=== PATIENT | female | born 1980 | race Caucasian/White ===

== ENCOUNTER 2018-07-21 15:26 | Emergency (ER) | payer SELFPAY ==
[~2018-07-21] VITALS: Wt 74.9 kg
[~2018-07-21 15:26] MED LIST: ACET1TAB40 PO; IBUP-1542 PO
[2018-07-21] MEDS ORDERED: IBUP800T48 PO (17:03)
--- NOTE | 2018-07-21 17:14 | ERD ---
ER Documentation Chief Complaint Chief Complaint LEFT SIDED UNDER BREAST CRAMPING RADIATING TO ARM. NUMBNESS. BREAST IMPLANT HPI This is a 37-year-old female presents ED with left sided breast pain that is been off and on for the past 4 days. Patient states that when the breast pain starts that sharp and somewhat cramping in nature. Patient also admits to some left arm numbness. Denies chest pain, sputum production, cough, congestion, run ny nose, shortness breath, trouble breathing, redness, swelling, purulent drainage coming from breast, inverted nipple, among others. Patient denies cardiac risk factors including: hypertension, diabetes mellitus, hypercholesterolemia, physical inactivity, smoking, hx of CAD, and prior stress/cath. Patient denies PE risk factors including recent surgery/immobilization, smoking, prior hx of DVT, coagulopathy, hx of cancer, exogenous estrogen use, one sided lower extremity swelling, and lower extremity pain ROS All systems reviewed and are negative except as per history of present illness. Medications Home Meds Active Scripts Ibuprofen* (Motrin*) 800 Mg Tab, 800 MG PO Q6, #30 TAB Prov:ISAAK HOLLOWAY PA-C 07/21/18 Acetaminophen-Codeine* (Acetaminophen-Cod #3*) 300-30 Mg Tab, 1 TAB PO Q4H PRN for PAIN LEVEL 6-10, #15 TAB Prov:CHO,KAITLIN 09/27/14 Ibuprofen* (Motrin*) 600 Mg Tab, 600 MG PO Q6, #15 TAB Prov:CHO,KAITLIN 09/27/14 Allergies Allergies: Coded Allergies: No Known Allergy (Verified , 03/07/14) PMhx/Soc History of Surgery: Yes (BREAST IMPLANTS 9 YEARS AGO) Anesthesia Reaction: No Hx Neurological Disorder: No Hx Respiratory Disorders: No Hx Cardiac Disorders: No Hx Psychiatric Problems: No Hx Miscellaneous Medical Probl: No Hx Alcohol Use: No Hx Substance Use: No Hx Tobacco Use: No Smoking Status: Never smoker FmHx Family History: No diabetes Physical Exam Vitals Vital Signs Date Temp Pulse Resp B/P (MAP) Pulse Ox O2 O2 Flow FiO2 Time Delivery Rate 07/21/18 97.2 54 18 136/65 98 15:40 (88) Physical Exam Physical Exam Vitals signs: Reviewed by me. General: Well developed, well nourished, in no acute distress. Patient is awake and alert. Head: Normocephalic, atraumatic. Eyes: Normal conjunctiva, Pupils PERRLA, EOM intact grossly ENT: Pharynx is clear, Moist mucous membranes, external ears, nose and mouth normal Neck: Supple, no masses, lymphadenopathy or JVD Respiratory: Clear to auscultation bilaterally with no wheezing, rhonchi, rales, no distress Cardiovascular: RRR, no murmurs, rubs, or gallops Breast: Breast bilaterally are pendulous, there is no redness, swelling or evidence of mastitis, there is mild tenderness palpation along the left breast at the 7 o'clock position, there is no mass or fluctuant mass palpated, no nipple discharge Neurologic: Alert and oriented, moving all extremities, normal speech, no focal weakness, no cerebellar signs. Normal mentation Skin: warm and dry, No rash Psych: Normal mood Results 24 hrs Current Medications Medications Dose Sig/Fly Start Time Status Last (Trade) Ordered Route PRN Stop Time Admin Dose Reason Admin Ibuprofen 800 mg ONCE ONCE 07/21/18 (Motrin) PO 17:30 07/21/18 17:31 Procedures/MDM EKG, MONITORS, & DIAGNOSTIC IMAGING: EKG read by iman: Rate/Rhythm: Sinus bradycardia at a rate of 53 Intervals: Normal Impression: No evidence of ischemia or arrhythmia No ST elevation, no peak T waves, no widened QRS, no parenteral prolongation, no QT interval prolongation ER COURSE: The patient was given ibuprofen The medication was well tolerated and the patient reports improvement in symptoms. The patient was stable throughout ED course. I kept the patient and/or family informed of laboratory and diagnostic imaging results throughout the emergency room course. The patient was promptly evaluated and a treatment plan was devised based on H&P and other data. This plan was discussed with the patient who agreed and had no further questions or concerns prior to discharge. MEDICAL DECISION MAKING: This is a 37-year-old female presents ED with left breast pain times 4 days. Physical examination is unremarkable and there is no mass palpated. There is no redness, swelling or evidence of mastitis. I have a low suspicion for abscess or mastitis. Whenever there is a breast concern on the differential is cancer. Again there is no mass palpated and there is no evidence of cancer. Patient was advised to follow-up with her primary care physician or gynecology to have a mammogram or formal ultrasound. I discussed patient with my overseeing physician Dr. Lopez and he advises to do an EKG. EKG is unremarkable. at this time there is no evidence of mastitis, abscess, sepsis, STEMI, nSTEMI, aortic dissection, pneumonia, pneumothorax, esophageal rupture, pulmonary embolism, pleural effusion, among others vitals are stable patient can be managed close outpatient follow-up. Advised patient follow-up with her primary care in the next 48 hours. Return to ED with any worsening symptoms. DISPOSITION PLAN: We discussed follow up with the patient's primary care doctor within 24 to 48 hours. Patient counseled regarding my diagnostic impression and care plan. Prior to discharge all questions answered. Pt agrees with treatment plan and understands strict return precautions. Precautionary instructions provided including instructions to return to the ER if not improving or for any worsening or changing symptoms or concerns. SPECIALIST FOLLOW UP RECOMMENDED: Gynecology Patient has been advised to follow up with primary care in 1-2 days. Disclaimer: Inadvertent spelling and grammatical errors are likely due to EHR/dictation software use and do not reflect on the overall quality of patient care. Also, please note that the electronic time recorded on this note does not necessarily reflect the actual time of the patient encounter. Departure Diagnosis: Primary Impression: Breast pain Condition: Stable Patient Instructions: Breast Self-Exam (BSE), Pain Management Referrals: [facility] YOU HAVE RECEIVED A MEDICAL SCREENING EXAM AND THE RESULTS INDICATE THAT YOU DO NOT HAVE A CONDITION THAT REQUIRES URGENT TREATMENT IN THE EMERGENCY DEPARTMENT. FURTHER EVALUATION AND TREATMENT OF YOUR CONDITION CAN WAIT UNTIL YOU ARE SEEN IN YOUR DOCTORS OFFICE WITHIN THE NEXT 1-2 DAYS. IT IS YOUR RESPONSIBILITY TO MAKE AN APPOINTMENT FOR FOLOW-UP CARE. IF YOU HAVE A PRIMARY DOCTOR --you should call your primary doctor and schedule an appointment IF YOU DO NOT HAVE A PRIMARY DOCTOR YOU CAN CALL OUR PHYSICIAN REFERRAL HOTLINE AT IF YOU CAN NOT AFFORD TO SEE A PHYSICIAN YOU CAN CHOSE FROM THE FOLLOWING [facility] CL[facility] [address] [facility] [address] [facility]. [facility] [address] [facility] [address] [facility] [address] [facility]. [facility] [address] Additional Instructions: Patient was advised to follow-up with her primary care regarding left breast pain to have possible mammogram or further advanced imaging. Patient advised to return to the ED immediately for new or worsening symptoms. Patient advised to follow up with primary care provider in the next 24-48 hours. Patient verbalized understanding and agrees with treatment plan and course of action. If patient has no primary care they may follow up with one of the community clinics listed on the following page or one of the options listed below [facility] [address] [place] [id number] or [facility] [address] [place] [address] or [facility] [address] [place] [address] ISAAK HOLLOWAY PA-C Jul 21, 2018 17:14
[2018-07-21] MEDS ORDERED: IBUPROFEN 800 MG TAB PO ONE (17:30)
== END 2018-07-21 17:13 | disposition home or self-care (01) ==
LOC: FTE 15:26
DX: N64.4 Mastodynia (principal)
CPT/HCPCS: 93005